=== PATIENT | male | born 2000 | race Caucasian/White ===

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

== ENCOUNTER 2019-01-17 09:44 | Emergency (ER) | payer OTHER ==
[~2019-01-17] VITALS: Ht 180.3 cm; Wt 130.8 kg
[~2019-01-17 09:44] MED LIST: BEN25 PO; ELIM TOP
[2019-01-17 10:07] VITALS: RESP 18; Ht 180.3 cm; Wt 130.8 kg
[2019-01-17] MEDS ORDERED: ONDANSETRON (ODT) 4 MG TAB ODT STA (10:44)
[2019-01-17] MEDS ORDERED: HYDROCODONE/APAP (5/325) TAB PO ONE (11:00)
[2019-01-17] MEDS ORDERED: ONDA8TAB14 PO (12:57)
[2019-01-17] MEDS ORDERED: TRAM50TA2 PO (12:57)
--- NOTE | 2019-01-17 13:01 | ERD ---
ER Documentation Chief Complaint Chief Complaint abdominal pain today HPI 18 -year-old male presents with upper abdominal pain starting today. Started while sleeping. He has nausea. He has pain in the right upper abdomen with deep breathing as well. Denies any fevers, lower abdominal pain, urinary complaints. Denies history of gallstones or previous abdominal conditions. ROS All systems reviewed and are negative except as per history of present illness. Medications Home Meds Active Scripts Ondansetron (Ondansetron Odt) 8 Mg Tab.rapdis, 8 MG PO Q6H PRN for NAUSEA AND/OR VOMITING, #10 TAB Prov:YAIMA GARCIA MD 01/17/19 Tramadol HCl (Tramadol HCl) 50 Mg Tablet, 50 MG PO Q4 PRN for PAIN, #15 TAB Prov:YAIMA GARCIA MD 01/17/19 Diphenhydramine Hcl* (Benadryl*) 25 Mg Cap, 25 MG PO Q6, #30 CAP Prov:CAMILLE,ELAINA C 11/20/17 Permethrin* (Elimite*) 5% Cr, 1 APPLIC TOP ONCE for 1 Day, TUB Prov:CAMILLE,ELAINA C 11/20/17 Allergies Allergies: Coded Allergies: No Known Allergy (Unverified , 11/20/17) PMhx/Soc Medical and Surgical Hx: pt denies Medical Hx, pt denies Surgical Hx Hx Alcohol Use: No Hx Substance Use: No Hx Tobacco Use: No Smoking Status: Never smoker FmHx Family History: No diabetes, No coronary disease, No other Physical Exam Vitals Vital Signs Date Temp Pulse Resp B/P (MAP) Pulse Ox O2 O2 Flow FiO2 Time Delivery Rate 01/17/19 98 136/81 13:14 (99) 01/17/19 98.9 105 18 162/70 97 10:07 (100) Physical Exam Const: No acute distress Head: Atraumatic Eyes: Normal Conjunctiva ENT: Normal External Ears, Nose and Mouth. Neck: Full range of motion. No meningismus. Resp: Clear to auscultation bilaterally Cardio: Regular rate and rhythm, no murmurs Abd: Soft, mildly tender in the epigastric and right upper quadrant area without rebound. No tenderness McBurney's point., non distended. Normal bowel sounds Skin: No petechiae or rashes Back: No midline or flank tenderness Ext: No cyanosis, or edema Neur: Awake and alert Psych: Normal Mood and Affect Result Diagram: 01/17/19 1100 01/17/19 1100 Results 24 hrs Laboratory Tests Test 01/17/19 10:50 01/17/19 11:00 Urine Color YELLOW Urine Clarity CLEAR Urine pH 5.0 Urine Specific [place] 1.030 Urine Ketones TRACE mg/dL Urine Nitrite NEGATIVE mg/dL Urine Bilirubin NEGATIVE mg/dL Urine Urobilinogen 1+ mg/dL Urine Leukocyte Esterase NEGATIVE Tammy/ul Urine Hemoglobin NEGATIVE mg/dL Urine Glucose NEGATIVE mg/dL Urine Total Protein NEGATIVE mg/dl White Blood Count 8.2 10^3/ul Red Blood Count 5.52 10^6/ul Hemoglobin 14.4 g/dl Hematocrit 44.9 % Mean Corpuscular Volume 81.3 fl Mean Corpuscular Hemoglobin 26.1 pg Mean Corpuscular Hemoglobin Concent 32.1 g/dl Red Cell Distribution Width 13.5 % Platelet Count 277 10^3/UL Mean Platelet Volume 10.8 fl Immature Granulocytes % 0.500 % Neutrophils % 64.0 % Lymphocytes % 23.7 % Monocytes % 7.1 % Eosinophils % 4.3 % Basophils % 0.4 % Nucleated Red Blood Cells % 0.0 /100WBC Immature Granulocytes # 0.040 10^3/ul Neutrophils # 5.3 10^3/ul Lymphocytes # 1.9 10^3/ul Monocytes # 0.6 10^3/ul Eosinophils # 0.4 10^3/ul Basophils # 0.0 10^3/ul Nucleated Red Blood Cells # 0.0 10^3/ul Sodium Level 143 mmol/L Potassium Level 4.3 mmol/L Chloride Level 102 mmol/L Carbon Dioxide Level 27 mmol/L Anion Gap 14 Blood Urea Nitrogen 11 mg/dl Creatinine 0.72 mg/dl Est Glomerular Filtrat Rate mL/min > 60 mL/min Glucose Level 123 mg/dl Calcium Level 9.8 mg/dl Total Bilirubin 0.1 mg/dl Direct Bilirubin 0.00 mg/dl Indirect Bilirubin 0.1 mg/dl Aspartate Amino Transf (AST/SGOT) 29 IU/L Alanine Aminotransferase (ALT/SGPT) 24 IU/L Alkaline Phosphatase 107 IU/L Total Protein 9.2 g/dl Albumin 4.6 g/dl Globulin 4.60 g/dl Albumin/Globulin Ratio 1.00 Lipase 57 U/L Current Medications Medications Dose Sig/Vika Start Time Status Last (Trade) Ordered Route PRN Stop Time Admin Dose Reason Admin 1 tab ONCE ONCE 01/17/19 DC 01/17/19 Acetaminophen PO 11:00 10:50 / 01/17/19 11:01 Hydrocodone Bitart ([place] (5/325)) Ondansetron 8 mg ONCE STAT 01/17/19 DC 01/17/19 HCl (Zofran ODT 10:44 10:50 Odt) 01/17/19 10:45 Procedures/MDM Patient presents with epigastric and right upper quadrant pain since this morning associated with nausea. Right upper quadrant ultrasound shows gallstones without signs of cholecystitis or choledocholithiasis. CBC and CMP and lipase showed no acute abnormalities. Urine shows no signs of infection. Patient given Zofran and 1 [place]. Patient had a benign abdomen on serial exam. Patient presents with 1 day history of upper abdominal pain, nausea and signs of gallstones without complications, likely representing source of pain. Patient be discharged home with tramadol, Zofran, recognitions for primary care follow- up and general surgery evaluation. Patient will be discharged home and instructed to return for fevers, vomiting, worsening pain otherwise with primary doctor this week. Patient is instructed to avoid fatty foods. Patient should return sooner for lower abdominal pain, vomiting despite treatment, fevers, new worsening symptoms. The patient was stable with no new complaints during the ER course. Clinically, there is no current evidence to suggest meningitis, sepsis, acute abdomen, pneumonia, stroke, acute coronary syndrome, pulmonary embolism, aortic dissection or any other emergent condition appearing to require further evaluation or hospitalization. Patient counseled regarding my diagnostic impres mirza and care plan. Prior to discharge all questions answered. Pt agrees with treatment plan and understands strict return precautions. Pt is instructed to follow up with primary care provider within 24-48 hours. Precautionary instructions provided including instructions to return to the ER if not i mproving or for any worsening or changing symptoms or concerns. Departure Diagnosis: Primary Impression: Gallstones Additional Impression: Abdominal pain Abdominal location: right upper quadrant Qualified Codes: R10.11 - Right upper quadrant pain Condition: Stable Patient Instructions: Abdominal Pain, Gallstones Additional Instructions: Examinations today show gallstones which are likely cause of pain. Recheck for fevers, vomiting, worsening pain, new worsening symptoms. Avoid fatty foods. See primary doctor for evaluation for general surgery for all. Treatment for gallstones is removal of gallbladder. YAIMA GARCIA MD Jan 17, 2019 13:01
[2019-01-17 13:14] VITALS: BP 136/81; PULSE 98
== END 2019-01-17 13:15 | disposition home or self-care (01) ==
LOC: FTE 09:44
DX: K80.20 Calculus of gallbladder without cholecystitis without obstruction (principal)
CPT/HCPCS: 36415; 76705; 80053; 81003; 83690; 85025; Z7502; Z7610